=== PATIENT | female | born 1985 | race Caucasian/White ===

== ENCOUNTER 2019-03-22 05:07 | Day surgery (SDC) | payer OTHER ==
[2019-03-21 13:33] VITALS: BMI 25.6
--- NOTE | 2019-03-22 07:35 | HP ---
History & Physical Update - Physical Physical: No Change - Assessment Assessment: No Change - Plan Plan: No Change (H&P reviwed , no changes for hysteroscopy , suction D&C)
[2019-03-22] MEDS ORDERED: PROPOFOL 20 ML ONE (11:56)
[2019-03-22] MEDS ORDERED: MIDAZOLAM HCL 2 MG/2 ML SINGLE DOSE VIAL ONE (12:02)
[2019-03-22] MEDS ORDERED: IBUPROFEN 800 MG/8 ML IJ IVPB PRN (12:49)
[2019-03-22] MEDS ORDERED: IBUPROFEN 600 MG TABLET (FP) PO PRN (12:49)
[2019-03-22] MEDS ORDERED: ONDANSETRON 4 MG/2 ML VIAL IVPUSH PRN ×2 (12:49→13:26)
[2019-03-22] MEDS ORDERED: oxyCODONE HCL 5 MG TABLET PO PRN ×2 (12:49→13:26)
[2019-03-22] MEDS ORDERED: DESFLURANE GAS 240 ML BOTTLE IH ONE (12:53)
[2019-03-22] MEDS ORDERED: KETOROLAC TROMETHAMINE 30 MG/1 ML VIAL ONE (12:54)
[2019-03-22] MEDS ORDERED: DEXAMETHASONE SOD PHOSPHATE 4 MG/1 ML VIAL ONE (12:54)
[2019-03-22] MEDS ORDERED: ELECTROLYTE-148 SOLN 1,000 ML IV SCH (13:00)
[2019-03-22] MEDS ORDERED: LACTATED RINGERS SOLUTION 1,000 ML IV SCH (13:30)
[2019-03-22 15:06] VITALS: TEMP 97.4
[2019-03-22] MEDS ORDERED: ONDANSETRON 4 MG/2 ML VIAL ONE (15:28)
[2019-03-22 17:47] VITALS: BP 115/54; PULSE 65
--- NOTE | 2019-03-22 21:26 | OP ---
Operative Note - Note: Operative Date: 03/22/19 Pre-Operative Diagnosis: menometrorrhagia, fibroid uterus, r/o retained POC Operation: hysteroscopy,suction D&C Findings: uterus enlarged with multiple fibroids , blood clot in EM cavity, no submucos myoma Post-Operative Diagnosis: Same as Pre-op Surgeon: Fabian Araya Anesthesia: General Specimens Removed: EMC Estimated Blood Loss (mls): 20 Blood Volume Replaced (mls): 0 Operative Report Dictated: Yes
--- NOTE | 2019-03-23 15:39 | PATH ---
Surgical Pathology Report Patient Name: SHAY MESA [facility]. Rec. #: [id number] /Age/Gender: 1985 (Age: 33) / F Account: [id number] Location: [facility] Taken: 03/22/2019 Received: 03/22/2019 Reported: 03/23/2019 Physicians: Fabian Araya M.D. Specimen(s) Received ENDOMETRIAL CURETTINGS Clinical History Leiomyoma of uterus, excess and frequent menstruation Final Diagnosis ENDOMETRIAL CURETTINGS, DILATION AND CURETTAGE: SECRETORY ENDOMETRIUM, BENIGN ENDOCERVICAL MUCOSA, SCANT BENIGN CERVICAL SQUAMOUS EPITHELIUM, AND RARE SMOOTH MUSCLE FRAGMENTS SUGGESTIVE OF SUBMUCOSAL LEIOMYOMA ADMIXED WITH BLOOD. Electronically Signed Karina Barfield M.D. Gross Description Received in formalin labeled "endometrial curettings," is a 4.0 x 2.3 x 0.3 cm aggregate of pratt-red hemorrhagic soft tissue fragments. The formalin is filtered and the specimen is entirely submitted in 2 cassettes. /03/22/2019 saudi/03/22/2019
--- NOTE | 2019-03-24 07:23 | OP ---
DATE OF OPERATION: 03/22/2019 PREOPERATIVE DIAGNOSIS: Menometrorrhagia, fibroid uterus, rule out retained products of conception. POSTOPERATIVE DIAGNOSIS: Menometrorrhagia, fibroid uterus, rule out retained products of conception. PROCEDURE PERFORMED: Hysteroscopy, dilatation and curettage. SURGEON: Fabian Araya MD ANESTHESIA: General. ESTIMATED BLOOD LOSS: 50 mL. DESCRIPTION OF PROCEDURE: The patient was taken to the operating room and had adequate general anesthesia, in the dorsal lithotomy position. Examination under anesthesia revealed the external genitalia to be normal. The vagina was normal. Cervix was clean, no gross lesion. Uterus was enlarged and irregular, with multiple fibroids. Adnexa: No masses palpable. With a weighted speculum in the vagina, the anterior lip of the cervix was grasped with a single-tooth tenaculum. The uterine cavity was sounded to 9 cm. The cervix was slightly dilated. Then hysteroscope was introduced. Visualization of endocervical canal appeared to be normal. The endometrium appeared to be irregular. Two small blood clots were found in the fundal area of the uterus. No submucous myoma was seen and no polyp was found. Then the hysteroscope was withdrawn. A suction curette was inserted into the uterine cavity and the content was suctioned. The patient tolerated the procedure well, and left the OR in good condition. FABIAN ARAYA M.D. [id number]
== END 2019-03-22 17:10 | disposition home or self-care (01) ==
LOC: JASU-SURG 05:07
PROVIDERS: ATTEND Obstetrics & Gynecology
PROC: 0UDB7ZX Extraction of Endometrium, Via Natural or Artificial Opening, Diagnostic (ICD-10-PCS; principal; 2019-03-22 11:15)
PROC: 0UJD8ZZ Inspection of Uterus and Cervix, Via Natural or Artificial Opening Endoscopic (ICD-10-PCS; 2019-03-22 11:15)
DX: N92.1 Excessive and frequent menstruation with irregular cycle (principal); D25.9 Leiomyoma of uterus, unspecified
CPT/HCPCS: 88305-TC; 94760